=== PATIENT | female | born 1990 | race American Indian/Alaskan Native ===

== ENCOUNTER 2018-06-18 17:48 | Emergency (ER) | payer OTHER ==
[2018-06-18 18:05] VITALS: BP 109/62
[2018-06-18] MEDS ORDERED: TYLENOL PO ONE (18:08)
[2018-06-18] MEDS ORDERED: TYLENOL ONE (18:08)
[2018-06-18 18:46] LABS: HCG Qualitative,Urine Negative (Negative)
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
[2018-06-18] MEDS ORDERED: ULTRAM PO ONE (23:48)
[2018-06-18] MEDS ORDERED: ULTRAM ONE (23:49)
== END 2018-06-18 23:55 | disposition home or self-care (01) ==
LOC: ED 17:48
DX: M54.5 Low back pain (principal); Z91.018 Allergy to other foods; V89.2XXA Person injured in unspecified motor-vehicle accident, traffic, initial encounter; Y93.89 Activity, other specified; Y92.488 Other paved roadways as the place of occurrence of the external cause; Y99.8 Other external cause status
CPT/HCPCS: 81025; 99283